=== PATIENT | male | born 1985 | race Caucasian/White ===

== ENCOUNTER 2016-11-30 10:36 | Emergency (ER) | payer OTHER ==
[~2016-11-30] VITALS: Ht 185.4 cm; Wt 88.5 kg
--- NOTE | ~2016-11-30 | EKG ---
[place] [address] [facility] [facility] [place] [address] ELECTROCARDIOGRAM REPORT Name: KAREN GALLEGOSCHARIAH Janina Room #: [facility]#: [id number] Admission: 11/30/16 Attend Phys: Discharge: 11/30/16 Date of : 83 Report #: [id number] THIS REPORT FOR: //name// [facility] ED Test Date: 2016-11-30 Test Time: 10:40:49 Pat Name: BRAXTON GALLEGOS Department: Room: Gender: M Nutrition Educator: FLORENTIN : 1985 Requested By: Alda Nicolas Order Number: [id number] MD: Stefano Bravo Measurements Intervals [place] Rate: 77 P: 39 AL: 128 QRS: 24 QRSD: 83 T: 42 QT: 353 QTc: 400 Interpretive Statements Sinus rhythm ST elev, probable normal early repol pattern Baseline wander in lead(s) V4 No previous ECG available for comparison Electronically Signed On 11-30-2016 16:47:48 REVIEW SPECIALIST by Stefano Bravo [email or web address] <ELECTRONICALLY SIGNED> By: Stefano Bravo MD 11/30/16 1647 1040 1040 Stefano Bravo MD /HELENA
[~2016-11-30 10:36] MED LIST: NAPROSYN500 MG PO; NOHOMEMEDICATIONS
[2016-11-30] MEDS ORDERED: DEXILANT60 MG PO (10:48)
[2016-11-30 11:25] LABS: ABSOLUTE NEUTROPHILS 3.5 thou/uL (1.4-8.2); BASOPHILS 1.2 % (0.0-2.0); EOSINOPHILS 2.7 % (0.0-3.0); HEMATOCRIT 46.7 % (42.0-52.0); HEMOGLOBIN 16.1 gm/dL (14.0-18.0); LYMPHOCYTES 31.9 % (24.0-44.0); MCHC 34.5 % (28.0-37.0); MCV 89.9 fL (80.0-100.0); MONOCYTES 9.9 % (1.0-8.0); PLATELET COUNT 178 thou/uL (150-400); POLYS 54.3 % (36.0-66.0); RDW 12.5 % (10.5-14.5); WBC 6.5 thou/uL (4.0-11.0)
[2016-11-30 11:26] LABS: MANUAL DIFF NO
[2016-11-30 11:27] LABS: ANION GAP 6 mmol/L (7-16); BUN 15 mg/dL (7-18); CALCIUM 8.8 mg/dL (8.5-10.1); CHLORIDE 103 mmol/L (98-107); CO2 30 mmol/L (21-32); CREATININE 0.9 mg/dL (0.6-1.3); GLUCOSE 84 mg/dL (70-99); SODIUM 139 mmol/L (136-145)
[2016-11-30 11:36] LABS: URINE BILIRUBIN NEGATIVE (Negative); URINE BLOOD NEGATIVE (Negative); URINE COLOR YELLOW; URINE GLUCOSE-RANDOM* NEGATIVE (Negative); URINE KETONES NEGATIVE (Negative); URINE NITRITE NEGATIVE (Negative); URINE PROTEIN (DIPSTICK) NEGATIVE (Negative); URINE UROBILINOGEN 0.2 E.U./dl (0.2-1.0)
[2016-11-30 11:36] LABS: TROPONIN-I < 0.04 ng/mL (<0.04-0.07)
[2016-11-30 13:13] VITALS: BP 120/82
[2017-01-04] MEDS ORDERED: ASPIRIN325 PO (14:17)
[2017-01-04] MEDS ORDERED: KEFLEX500 MG PO (15:38)
[2017-01-04] MEDS ORDERED: NORCO 5-325 TA1 EACH PO (15:38)
== END 2016-11-30 13:13 | disposition home or self-care (01) ==
LOC: ER 10:36
PROVIDERS: Physician Assistant
DX: N50.811 Right testicular pain (principal); R07.89 Other chest pain; F10.99 Alcohol use, unspecified with unspecified alcohol-induced disorder